=== PATIENT | female | born 1970 | race Caucasian/White ===

== ENCOUNTER 2020-08-16 18:43 | Emergency (ER) | payer OTHER ==
[~2020-08-16] VITALS: Ht 160 cm; Wt 65.3 kg
[2020-08-16] MEDS ORDERED: RAMIPRIL10 MG PO (18:53)
[2020-08-16 19:41] VITALS: BP 126/68
== END 2020-08-16 19:42 | disposition home or self-care (01) ==
LOC: M.ERS 18:43
DX: S61.211A Laceration without foreign body of left index finger without damage to nail, initial encounter (principal); Z90.710 Acquired absence of both cervix and uterus; W26.0XXA Contact with knife, initial encounter; Y93.89 Activity, other specified; Y92.89 Other specified places as the place of occurrence of the external cause; Y99.8 Other external cause status